=== PATIENT | male | born 1985 | race Caucasian/White ===

== ENCOUNTER 2021-03-18 05:52 | Emergency (ER) | payer SELFPAY ==
[2021-03-18] VITALS (20 sets, daily range): BP systolic 104–134; BP diastolic 65–74; PULSE 70–115; RESP 16–25; TEMP 36.6; O2SAT 100
--- NOTE | 2021-03-18 | DI.CT_ITS ---
Exam(s) CT HEAD CERVICAL SPINE WO EXAM: CT HEAD CERVICAL SPINE WO COMPARISON: No exams were available for comparison FINDINGS: CT examination of the cervical spine was performed without contrast administration. Note is made of a rounded incompletely imaged ground-glass opacity in the right lung apex. Chest CT recommended for full characterization of this radiodensity. There is no evidence of acute cervical spine fracture or dislocation. Intervertebral disc spaces are well maintained. Tracheolaryngeal structures appear intact. No cervical mass or adenopathy. Noncontrast cranial CT was performed. Ventricular system is normal in appearance. No evidence of acute intracranial hemorrhage, mass effect, or midline shift. No calvarial fracture. The orbital and temporal bone structures appear intact. Visualized mastoid air cells and paranasal sinuses appear clear. IMPRESSION: No evidence of acute cervical spine injury. No evidence of acute intracranial injury. Incidental finding of incompletely imaged nodular ground-glass radiodensity of right lung apex. Ches t CT suggested for further evaluation Results were communicated to the ER RADIATION DOSE DELIVERED: 1,548.97mGy.cm Total DLP 1,548.97mGy.cm Total DLP DATA REPOSITORY: All CT scans at this facility are submitted to the National Radiology Data Registry (NRDR) Dose Index Registry (DIR) with the [employer] ([employer]). RADIATION OPTIMIZATION: All CT scans at this facility use at least one of these dose optimization te chniques: automated exposure control; mA and/or kV adjustment per patient size (includes targeted exa ms where dose is matched to clinical indication); or iterative reconstruction.
--- NOTE | 2021-03-18 05:45 | RT.EKG_ITS ---
APPROVED REPORT Exam: Resting ECG Reason for Exam: altered Patient Location: E HR:85 bpm ECG Measurements Heart Rate 85 AXIS AZ 140 P 63 QRSd 81 QRS 66 QT 357 T 54 QTc 424 Conclusion Sinus rhythm...normal P axis, V-rate 60- 99. No STEMI. I have reviewed and interpreted ECG and agree with software generated interpretation.
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
[2021-03-18] MEDS: Normal Saline 1,000 ML 1000 ML IV (06:33)
[2021-03-18 06:41] LABS: pH (Venous) 7.34 (7.31-7.41)
[2021-03-18 06:42] LABS: TCO2 (Venous) 21 mmol/L (24-29); pCO2 (Venous) 43 mmHg (41-51); pO2 (Venous) 40 mmHg
[2021-03-18 06:43] LABS: BE (Venous) -3 mmol/L (-2-3); HCO3 (Venous) 23 mmol/L (23-28); O2 Sat (Venous) 74 %
[2021-03-18 07:13] LABS: ALT 33 U/L (16-63); AST 97 U/L (15-37); Alkaline Phosphatase 69 U/L (46-116); Anion Gap 12.2 mmol/L (3-11); BUN 21 mg/dL (7-18); Bilirubin, Direct 0.1 mg/dL (0.0-0.2); Bilirubin, Total 0.7 mg/dL (0.2-1.0); CO2 23.8 mmol/L (21.0-32.0); CREATININE 0.9 mg/dL (0.70-1.30); Calcium 8.9 mg/dL (8.5-10.1); Chloride 107 mmol/L (98-107); Glucose 99 mg/dL (74-106); Sodium 143 mmol/L (136-145); Total Protein 7.1 g/dL (6.4-8.2)
[2021-03-18 07:16] LABS: Salicylate < 2.8 mg/dL (<2.8)
[2021-03-18 07:20] LABS: Acetaminophen < 2 ug/mL (10-30)
[2021-03-18 07:21] LABS: ETHANOL BLOOD < 3.0 mg/dL (<3)
[2021-03-18 07:24] LABS: Abs Immature Grans 0.06 10^3/uL (0.0-0.06); Absolute Basophil Count 0.04 10^3/uL (0.0-0.2); Absolute Eosinophil Count 0.03 10^3/uL (0.0-0.7); Absolute Lymphocyte Count 0.76 10^3/uL (1.2-3.4); Absolute Monocyte Count 0.84 10^3/uL (0.1-0.8); Basophils % 0.3; Eosinophils % 0.2; HCT 42.8 % (40.0-50.0); HGB 14.8 g/dL (13.5-17.5); Immature Grans % 0.5; MCH 28.7 pg (27.0-33.0); MCHC 34.6 % (32.0-36.0); MCV 83.1 fL (80-95); MPV 9.5 fL (8.0-11.0); Monocytes % 6.6; Neutrophils % 86.4; Nucleated RBC 0 %; Platelet Count 343 10^3/uL (130-400); RBC 5.15 10^6/uL (4.36-5.78); RDW 11.7 % (11.8-14.1); RDW-SD 35.3 fL; WBC 12.73 10^3/uL (4.4-10.8)
[2021-03-18 07:33] LABS: Ammonia < 10 umol/L (11-32)
[2021-03-18] MEDS: Acetaminophen 325 MG TAB 650 MG PO (07:40)
[2021-03-18 07:52] LABS: Bilirubin Small (Negative); Blood Moderate (Negative); Clarity Clear (Clear); Glucose Negative (Negative); Ketones >=160 mg/dL (Negative); Leukocyte Esterase Negative (Negative); Nitrite Negative (Negative); Specific Gravity >= 1.030 (1.005-1.025); Urobilinogen 0.2 EU/dL (Up TO 0.2); pH 5.5 (5-8)
[2021-03-18 07:54] LABS: Bacteria Rare HPF (Negative); Epithelial Cells Rare HPF (Negative); WBC 0-2 HPF (0-5)
[2021-03-18 07:55] LABS: C & S Indicated? No; Crystals Rare Amorphous HPF (Negative); Mucus Trace (Negative)
[2021-03-18 07:56] LABS: *AMPHETAMINES SCREEN URINE Negative (Negative); *BARBITURATES SCREEN URINE Negative (Negative); *BENZODIAZEPINES SCREEN URINE Negative (Negative); Cannabinoids THC Negative (Negative); Cocaine Screen,Urine Negative (Negative); METHADONE URINE SCREEN Negative (Negative); OPIATES URINE SCREEN Negative (Negative)
[2021-03-18 08:03] LABS: Tricyclic Antidepressants Negative (Negative)
[2021-03-18] MEDS: Cephalexin 500 MG CAP PO (09:53)
[2021-03-18 10:22] LABS: Casts 3-5 Hyaline LPF (Negative)
== END 2021-03-18 09:56 | disposition home or self-care (01) ==
PROVIDERS: Student in an Organized Health Care Education/Training Program; Emergency Provider Physician Assistant
DX: S06.899A Other specified intracranial injury with loss of consciousness of unspecified duration, initial encounter (principal); S91.311A Laceration without foreign body, right foot, initial encounter; S80.812A Abrasion, left lower leg, initial encounter; S80.811A Abrasion, right lower leg, initial encounter; W17.89XA Other fall from one level to another, initial encounter
CPT/HCPCS: 36415; 80053; 80076; 80307; 82805; 93005; 96360; 99284; 70450; 72125; 80320; 80329; 81003; 81015; 82140; 85025; 93010; 99283